=== PATIENT | female | born 1960 | race Caucasian/White ===

== ENCOUNTER 2019-12-20 22:45 | Emergency (ER) | payer OTHER ==
[~2019-12-20] VITALS: Ht 165.1 cm; Wt 72.0 kg
[2019-12-20] MEDS ORDERED: SODIUM CHLORIDE 0.9% 1,000 ML IV ONE (22:55)
[2019-12-20] MEDS ORDERED: MORPHINE SULFATE 4 MG/ML CPJ (NOT FOR IM USE) IV STA (22:55)
[2019-12-20] MEDS ORDERED: ONDANSETRON HCL 4MG/2ML INJ IV STA (22:55)
[2019-12-20] MEDS ORDERED: LABETALOL 5MG/ML SYR 20 MG/4 ML SYRINGE IV ONE (23:00)
[2019-12-20 23:32] LABS: BASOPHILS % 0.6 % (0.0-2.0); EOSINOPHILS % 4.1 % (0.0-5.0); HEMATOCRIT. 43.9 % (36.0-48.0); HEMOGLOBIN. 14.6 g/dL (12.0-16.0); LYMPHOCYTES % 31.8 % (20.0-50.0); MEAN CORPUSCULAR HEMOGLOBIN 27.1 pg (28.0-32.0); MEAN CORPUSCULAR VOLUME 81.5 fL (81.0-99.0); MONOCYTES % 7.1 % (2.0-8.0); NEUTROPHILS % 56.4 % (40.0-76.0); PLATELET 261 x1000/uL (130-400); RED BLOOD CELL COUNT 5.38 mill/uL (4.2-5.4); RED CELL DISTRIBUTION WIDTH 14.4 % (11.6-14.6)
[2019-12-20 23:33] LABS: CHLORIDE 105 mEq/L (98-107)
[2019-12-20 23:35] LABS: PROTHROMBIN TIME 10.4 sec (9.6-11.0)
[2019-12-20 23:37] LABS: ETHANOL BLOOD < 10 mg/dL
[2019-12-21] MEDS ORDERED: MORPHINE SULFATE 4 MG/ML CPJ (NOT FOR IM USE) IV STA (00:27)
[2019-12-21] MEDS ORDERED: ONDANSETRON HCL 4MG/2ML INJ IV STA (00:27)
[2019-12-21 00:28] LABS: CLARITY URINE CLOUDY (CLEAR); COLOR URINE YELLOW (YELLOW); KETONES URINE NEGATIVE (NEGATIVE); LEUKOCYTE ESTERASE URINE 3+ (NEGATIVE); NITRITE URINE NEGATIVE (NEGATIVE); OCCULT BLOOD URINE 1+ (NEGATIVE); PROTEIN URINE NEGATIVE (NEGATIVE); SPECIFIC GRAVITY URINE 1.004 (1.005-1.030); UROBILINOGEN URINE 0.2 E.U./dL (0.2-1.0)
[2019-12-21] MEDS ORDERED: VANCOMYCIN 1 G PREMIX 200 ML IV ONE (00:30)
[2019-12-21] MEDS ORDERED: CEFTRIAXONE 1 G PREMIX 50 ML IV ONE (00:30)
[2019-12-21 00:34] LABS: *AMPHETAMINES SCREEN URINE NEGATIVE (NEGATIVE); *BARBITURATES SCREEN URINE NEGATIVE (NEGATIVE); *BENZODIAZEPINES SCREEN URINE NEGATIVE (NEGATIVE); *COCAINE SCREEN URINE NEGATIVE (NEGATIVE); METHADONE URINE SCREEN NEGATIVE (NEGATIVE)
[2019-12-21 00:35] LABS: CANNABINOID URINE SCREEN NEGATIVE (NEGATIVE); OPIATES URINE SCREEN PRESUMTIVE POSITIVE (NEGATIVE); PHENCYCLIDINE URINE SCREEN NEGATIVE (NEGATIVE)
[2019-12-21] MEDS ORDERED: METOCLOPRAMIDE HCL 10MG/2ML VIAL IV NR (01:15)
[2019-12-21] MEDS ORDERED: DIPHENHYDRAMINE 50MG/ML VIAL IV NR (01:15)
[2019-12-21] MEDS ORDERED: IOHEXOL-350 100 ML BOTTLE ONE ×2 (03:07→03:23)
[2019-12-21 06:06] VITALS: BP 122/60
== END 2019-12-21 06:08 | disposition short-term general hospital (02) ==
LOC: ER 22:45
DX: R51 Headache (principal); I10 Essential (primary) hypertension
CPT/HCPCS: 36415; 62270; 70450; 70496; 70498; 71045; 80053; 80305; 80320; 81003; 82962; 84484; 85025; 85610; 87040; 93005; 96365; 96366; 96375; 96376; 99285; J0696; J1200; J2270; J2405; J2765; J3370; J3490; J7030; Q9967; G0480